=== PATIENT | female | born 1985 | race Caucasian/White ===

== ENCOUNTER 2016-03-17 08:53 | Emergency (ER) | payer OTHER ==
[2016-03-17 09:13] VITALS: BP 116/82
--- NOTE | 2016-03-17 09:49 | UC ---
Throat Pain/Nasal Josiah HPI - HPI Summary HPI Summary: FAMILY HAS HAD STREP THROAT. PT'S STARTED TO HURT YESTERDAY. . NO FEVER OR CHILLS. NO COUGH. no fever, no white spots. pain is minimal. does not feel like strep throat. no cough, no wheezing. + runny nose. no sinus pain at this time. here with 2 kids who were dx'd with + strep yesterday. they are playful. - History of Current Complaint Chief Complaint: UCRespiratory Stated Complaint: SORE THROAT Time Seen by Provider: 03/17/16 09:11 Hx Last Menstrual Period: HAS IMPLAMON, DOES NOT HAVE REG PERIODS - Allergies/Home Medications Allergies/Adverse Reactions: Allergies Allergy/AdvReac Type Severity Reaction Status Date / Time Amoxicillin Allergy Swelling Verified 03/17/16 09:07 Of Face,Lips,& Throat Home Medications: Home Medications Etonogestrel IMPLANT(NF) [Implanon (NF)] 68 mg IMPLANT 03/17/16 [History] PMH/Surg Hx/FS Hx/Imm Hx Previously Healthy: Yes Endocrine History Of: Denies: Diabetes Cardiovascular History Of: Denies: Hypertension, Pacemaker/ICD GI/ History Of: Denies: Renal Disease - Surgical History Surgical History: Yes Surgery Procedure, Year, and Place: C SECTION X 2 - Family History Known Family History: Positive: Hypertension - Social History Alcohol Use: Rare Substance Use Type: None Smoking Status (MU): Never Smoked Tobacco Review of Systems Constitutional: Negative Skin: Negative Eyes: Negative ENT: Sore Throat, Nasal Discharge Respiratory: Negative Cardiovascular: Negative Gastrointestinal: Negative Genitourinary: Negative Motor: Negative Neurovascular: Negative Musculoskeletal: Negative Neurological: Negative Psychological: Negative All Other Systems Reviewed And Are Negative: Yes Physical Exam Triage Information Reviewed: Yes Appearance: Well-Appearing, No Pain Distress, Well-Nourished Vital Signs: Initial Vital Signs Temp 98.1 F 03/17/16 09:08 Pulse 72 03/17/16 09:08 Resp 16 03/17/16 09:08 BP 116/82 03/17/16 09:08 Pulse Ox 100 03/17/16 09:08 Vital Signs Reviewed: Yes Eye Exam: Normal ENT: Positive: Hearing grossly normal, Nasal congestion, Nasal drainage, TMs normal, Other: - no sinus tenderness. Negative: TM bulging, TM dull, TM red, Tonsillar swelling, Tonsillar exudate, Muffled/hoarse voice - +PND Dental Exam: Normal Neck exam: Normal Neck: Positive: Supple, Nontender, No Lymphadenopathy Respiratory Exam: Normal Respiratory: Positive: Chest non-tender, Lungs clear, Normal breath sounds, No respiratory distress, No accessory muscle use Cardiovascular Exam: Normal Cardiovascular: Positive: RRR, No Murmur, Pulses Normal, Brisk Capillary Refill Abdominal Exam: Normal Abdomen Description: Positive: Nontender, Soft Musculoskeletal Exam: Normal Neurological Exam: Normal Psychological Exam: Normal Skin Exam: Normal Throat Pain/Nasal Course/Dx - Course Course Of Treatment: rapid strep neg - Differential Dx/Diagnosis Differential Diagnosis/HQI/PQRI: Laryngitis, Peritonsillar Abscess, Pharyngitis , Sinusitis, Tonsillitis, URI Provider Diagnoses: Viral URI Discharge - Discharge Plan Condition: Stable Disposition: HOME Patient Education Materials: Cold Symptoms (ED) Referrals: Nicko Ramires [Primary Care Provider] - If Needed Additional Instructions: throat culture was neg for strep. fluids, rest, OTC tylenol cold and sinus. follow up if you develop fever, severe sore throat or white spots or wrosening of symptoms.
== END 2016-03-17 09:58 | disposition home or self-care (01) ==
LOC: UCCORT 08:53
DX: J06.9 Acute upper respiratory infection, unspecified (principal); Z88.1 Allergy status to other antibiotic agents
CPT/HCPCS: 87651; 99211; G0463